=== PATIENT | male | born 1990 | race Caucasian/White ===

== ENCOUNTER 2017-09-02 04:25 | Inpatient (IN) ==
[~2017-09-02 04:25] MED LIST: NALOXONE HCL 0.4 MG/ML VIAL ONE
[2017-09-02] MEDS ORDERED: 0.9 % SODIUM CHLORIDE 1,000 ML IV ONE ×3 (04:31→07:31)
[2017-09-02] MEDS ORDERED: NALOXONE HCL 0.4 MG/ML VIAL IV ONE ×3 (04:31→07:31)
--- NOTE | 2017-09-02 04:51 | Emergency Department Note ---
Altered Mental Status HPI - General Chief Complaint: Altered Mental Status Stated Complaint: Altered mental status Time Seen by Provider: 09/02/17 04:31 - History of Present Illness HPI Narrative: 27-year-old male brought in by significant other altered mental status, but did walk in on his own. Not responding verbally, significant other states he does take drugs, has a needle asha in the left arm. . He states he does not believe he was taking any alcohol but she was not there she states she received a text that was jumbled and she went over to see him and was there for approximately 15 minutes with his altered mental status. Does not know what he uses does know that he is used in the past. He states she has lived with them in the past but does not know his name. other than [place].. Patient given Narcan and patient immediately awakened and talking but uncooperative as far as he has a history of what he took . His pulse ox is running 95-96 % and blood pressure was 140 systolically . Review of Systems Limitations: ROS unobtainable due to patients medical condition Past Medical History - Past Medical History PMFSH Narrative: Significant other states he has used drugs in the past but she does not know which type Source: unable to obtain - Social History smoking status: Current every day smoker Physical Exam General appearance: obtunded Head: atraumatic Eye: Present: normal appearance, PERRL, other (pupils constricted) ENT: normal exam, normal oropharynx, mucous membranes moist Neck: Present: normal inspection, full ROM, trachea midline Chest: Present: normal inspection, symmetric chest wall rise Respiratory: Present: normal lung sounds bilaterally. Absent: respiratory distress, wheezes Cardiovascular: Present: regular rate, normal rhythm Abdominal: Present: soft, normal bowel sounds. Absent: distention, tenderness, guarding, rebound, rigidity Extremities: Present: normal inspection, full ROM. Absent: tenderness Back: Present: normal inspection, full ROM. Absent: tenderness Course Vital Signs Temperature 98.2 F 09/02/17 04:26 Pulse Rate 102 H 09/02/17 04:26 Respiratory Rate 20 09/02/17 04:26 Blood Pressure 142/104 09/02/17 04:26 Pulse Oximetry (%) 100 09/02/17 04:26 Temperature 98.2 F 09/02/17 04:26 Pulse Rate 92 H 09/02/17 07:46 Respiratory Rate 20 09/02/17 07:46 Blood Pressure 137/96 09/02/17 07:46 Pulse Oximetry (%) 100 09/02/17 07:46 Altered Mental Status - MDM Narrative Medical decision making narrative: after the narcan he sat up and said "Boy, this is the strangest doctor's office I've ever seen". resting. given second and 3rd narcan. abg's show 62 co Bi pap started and gases back to normal ph 7.[address] Crookconsulted and pt admitted - Lab Data Result diagrams: 09/02/17 04:44 09/02/17 04:44 Lab Results 09/02/17 09/02/17 09/02/17 Range/Units 04:44 04:44 04:44 WBC 14.4 H (4.5-11.0) K/mcL RBC 5.39 (4.50-5.90) M/mcL Hgb 16.1 (13.5-16.5) g/dL Hct 48.5 (41.0-55.0) % POC Hct 50.0 (41.0-55.0) % MCV 90.0 (80.0-100.0) fL MCH 29.8 (26.0-34.0) pg MCHC 33.1 (31.0-36.0) g/dL RDW 12.8 (11.5-14.5) % Plt Count 322 (140-440) K/mcL MPV 8.0 (7.4-10.4) fL Gran % 67.4 (38.0-78.0) % Lymph % (Auto) 23.1 (15.5-49.0) % [place] % (Auto) 7.8 (1.0-12.0) % Eos % (Auto) 1.3 (0.0-7.0) % Baso % (Auto) 0.4 (0.0-2.0) % Gran # 9.7 H (1.8-8.0) K/mcL Lymph # (Auto) 3.3 (1.5-4.8) K/mcL [place] # (Auto) 1.1 H (0.1-0.9) K/mcL Eos # (Auto) 0.2 (0.0-0.7) K/mcL Baso # (Auto) 0.1 (0.0-0.3) K/mcL POC Sodium 143 (133-145) mmol/L Sodium 141 (133-145) mmol/L POC Potassium 4.4 (3.3-5.1) mmol/L Potassium 4.5 (3.3-5.1) mmol/L POC Chloride 102 (96-108) mmol/L Chloride 99 (96-108) mmol/L Carbon Dioxide 29 (22-30) mmol/L POC Total CO2 35 H (22-30) mmol/L Anion Gap 13.0 (8-16) POC BUN 13 (6-20) mg/dl BUN 12 (6-20) mg/dl Creatinine 1.3 H (0.7-1.2) mg/dl POC Creatinine 1.3 H (0.7-1.2) mg/dl GFR Calculation 76 Glucose 102 (70-105) mg/dL POC Glucose 101 (70-105) mg/dL Calcium 9.5 (8.6-10.4) mg/dl POC WB Ioniz Calcium 1.21 (1.16-1.32) mmol/L Total Bilirubin 0.3 (0.0-1.0) mg/dL AST 17 (0-37) U/l ALT 11 (0-40) U/l Alkaline Phosphatase 97 (39-117) U/L Total Protein 7.9 (5.9-8.4) gm/dL Albumin 4.6 (3.2-5.2) gm/dL Globulin 3.3 (2.2-3.7) gm/dL Albumin/Globulin Ratio 1.4 (1.0-2.3) Salicylates < 0.3 mg/dL Urine Opiates Screen (NONDETECTED) Urine Methadone Screen (NONDETECTED) Acetaminophen < 5.0 ug/mL Ur Barbiturates Screen (NONDETECTED) Ur Phencyclidine Scrn (NONDETECTED) Ur Amphetamines Screen (NONDETECTED) U Benzodiazepines Scrn (NONDETECTED) Urine Cocaine Screen (NONDETECTED) U Marijuana (THC) Screen (NONDETECTED) Ethyl Alcohol (<0.010) gm/dl 09/02/17 09/02/17 Range/Units 04:44 06:45 WBC (4.5-11.0) K/mcL RBC (4.50-5.90) M/mcL Hgb (13.5-16.5) g/dL Hct (41.0-55.0) % POC Hct (41.0-55.0) % MCV (80.0-100.0) fL MCH (26.0-34.0) pg MCHC (31.0-36.0) g/dL RDW (11.5-14.5) % Plt Count (140-440) K/mcL MPV (7.4-10.4) fL Gran % (38.0-78.0) % Lymph % (Auto) (15.5-49.0) % [place] % (Auto) (1.0-12.0) % Eos % (Auto) (0.0-7.0) % Baso % (Auto) (0.0-2.0) % Gran # (1.8-8.0) K/mcL Lymph # (Auto) (1.5-4.8) K/mcL [place] # (Auto) (0.1-0.9) K/mcL Eos # (Auto) (0.0-0.7) K/mcL Baso # (Auto) (0.0-0.3) K/mcL POC Sodium (133-145) mmol/L Sodium (133-145) mmol/L POC Potassium (3.3-5.1) mmol/L Potassium (3.3-5.1) mmol/L POC Chloride (96-108) mmol/L Chloride (96-108) mmol/L Carbon Dioxide (22-30) mmol/L POC Total CO2 (22-30) mmol/L Anion Gap (8-16) POC BUN (6-20) mg/dl BUN (6-20) mg/dl Creatinine (0.7-1.2) mg/dl POC Creatinine (0.7-1.2) mg/dl GFR Calculation Glucose (70-105) mg/dL POC Glucose (70-105) mg/dL Calcium (8.6-10.4) mg/dl POC WB Ioniz Calcium (1.16-1.32) mmol/L Total Bilirubin (0.0-1.0) mg/dL AST (0-37) U/l ALT (0-40) U/l Alkaline Phosphatase (39-117) U/L Total Protein (5.9-8.4) gm/dL Albumin (3.2-5.2) gm/dL Globulin (2.2-3.7) gm/dL Albumin/Globulin Ratio (1.0-2.3) Salicylates mg/dL Urine Opiates Screen Suspect positive A (NONDETECTED) Urine Methadone Screen None detected (NONDETECTED) Acetaminophen ug/mL Ur Barbiturates Screen None detected (NONDETECTED) Ur Phencyclidine Scrn None detected (NONDETECTED) Ur Amphetamines Screen Suspect positive A (NONDETECTED) U Benzodiazepines Scrn None detected (NONDETECTED) Urine Cocaine Screen None detected (NONDETECTED) U Marijuana (THC) Screen Suspect positive A (NONDETECTED) Ethyl Alcohol < 0.010 (<0.010) gm/dl Disposition Pt seen by DECK MATE/PA only: No Clinical Impression: Drug overdose Qualifiers: Encounter type: initial encounter Injury intent: undetermined intent Qualified Code(s): T50.904A - Poisoning by unspecified drugs, medicaments and biological substances, undetermined, initial encounter Disposition: Xfer As Inpt ([facility]) Condition: Undetermined
[2017-09-02 05:29] LABS: Basophils # (Auto) 0.1 K/mcL (0.0-0.3); Basophils % (Auto) 0.4 % (0.0-2.0); Eosinophils # (Auto) 0.2 K/mcL (0.0-0.7); Eosinophils % (Auto) 1.3 % (0.0-7.0); Granulocytes % (Auto) 67.4 % (38.0-78.0); Lymphocytes # (Auto) 3.3 K/mcL (1.5-4.8); Lymphocytes % (Auto) 23.1 % (15.5-49.0); Mean Corpuscular HGB Conc 33.1 g/dL (31.0-36.0); Mean Corpuscular Hemoglobin 29.8 pg (26.0-34.0); Monocytes # (Auto) 1.1 K/mcL (0.1-0.9); Monocytes % (Auto) 7.8 % (1.0-12.0); Platelet Count 322 K/mcL (140-440); RBC 5.39 M/mcL (4.50-5.90); Red Cell Distribution Width 12.8 % (11.5-14.5)
--- NOTE | 2017-09-02 05:49 | Cat Scan Report ---
CLINICAL INFORMATION: Altered mental status COMPARISON: None. TECHNIQUE: Axial noncontrast-enhanced images through the brain. FINDINGS: Suboptimal images due to patient motion. No acute intracranial hemorrhage. No subdural hematoma. No subarachnoid hemorrhage. No intra-axial hemorrhage. No focal attenuation abnormality or localized mass effect. No midline shift. Cerebral hemispheres are negative. Brainstem and cerebellum are negative. Liver cisterns are normal. No calvarial lesions. No fracture. No lytic lesion. No scalp hematoma. IMPRESSION: Negative noncontrast enhanced brain CT scan. No acute abnormality. Interpreted and Authenticated by: Chris Miranda 09/02/17
--- NOTE | 2017-09-02 05:50 | XRay Report ---
INDICATION: Altered mental status TECHNIQUE: AP chest x-ray,semiupright portable COMPARISON: None FINDINGS:Lungs are negative. No parenchymal infiltrate or mass. Heart size and vascularity are normal. Xenia and mediastinum are negative. No pulmonary edema or pulmonary congestion. Xenia and mediastinum are negative. IMPRESSION: Negative AP portable chest x-ray Interpreted and Authenticated by: Chris Miranda 09/02/17
[2017-09-02 05:51] LABS: ALT/SGPT 11 U/l (0-40); Albumin 4.6 gm/dL (3.2-5.2); Albumin/Globulin Ratio 1.4 (1.0-2.3); Alkaline Phosphatase 97 U/L (39-117); Blood Urea Nitrogen 12 mg/dl (6-20)
[2017-09-02 05:52] LABS: Acetaminophen < 5.0 ug/mL; Salicylate < 0.3 mg/dL
[2017-09-02] MEDS ORDERED: NALOXONE HCL 1 MG in 0.9 % SODIUM CHLORIDE 250 ML IV SCH ×2 (07:30→12:00)
[2017-09-02] MEDS ORDERED: LORazepam 2 MG/ML VIAL IV ONE (07:31)
[2017-09-02 07:37] LABS: Amphetamine Screen,Urine SUSPECT POSITIVE (NONDETECTED); Benzodiazepines Screen,Urine NONE DETECTED (NONDETECTED); Cocaine Screen,Urine NONE DETECTED (NONDETECTED); Opiate Screen,Urine SUSPECT POSITIVE (NONDETECTED)
[2017-09-02] MEDS ORDERED: LORazepam 2 MG/ML VIAL IV PRN ×2 (10:05→11:12)
[2017-09-02] MEDS ORDERED: NALOXONE HCL 0.4 MG/ML VIAL IV PRN ×2 (10:05→11:12)
[2017-09-02] MEDS ORDERED: 0.9 % SODIUM CHLORIDE 1,000 ML IV SCH ×2 (10:15→11:12)
--- NOTE | 2017-09-02 10:20 | Internal Med History&Physical ---
Medical - H&P: HPI Patient information: Note initiated : 09/02/17 at 10:17 am Service Date, if different from initiated Date: [] Patient: Virginia Diop 27 y/o M admitted on for Altered mental status. Chief Complaint: AMS . History of present illness: This is a 27-year-old male reportedly known as "[place]ia" who is brought in by an acquaintance to the ER with confusion. Information is obtained from review of the medical record as there is no one at the bedside and patient is unable to give information. Per ER report, the woman who brought him in states that he has sometimes stayed with them in the past but she did not know his name other than [place]. She reported that he does take drugs. She became worried about him after receiving attacks that was "jumbled". In the ED, his urine drug screen was positive for THC, opiates and amphetamines. He has received multiple doses of Narcan and responded each time, but he has continued to fall back asleep. He was started on BiPAP in the ER. ER evaluation shows a leukocytosis. He has not been febrile. He has not been hypoxic. Head CT and chest x-ray are negative ROS unobtainable: due to mental status Medical - H&P: PMH Medical history: Unobtainable secondary to mental status. Unable to obtain home meds or allergies d/t mental status. Surgical history: Unobtainable secondary to mental status. Pertinent family history: Unobtainable secondary to mental status Social history: Per chart review, he is a daily smoker and uses injection drugs. Medical - H&P: Exam - Constitutional Vitals: Temp Pulse Resp BP Pulse Ox 97.6 F 78 21 131/96 97 09/02/17 09:45 09/02/17 09:45 09/02/17 09:31 09/02/17 09:31 09/02/17 09:45 General: This is a well-developed, well-nourished young man who appears his stated age. He is unresponsive lying in the ER gurney on BiPAP HEENT: Normocephalic atraumatic. He actively resists opening his eyes for pupillary exam. Oropharynx is moist. Neck: Supple without lymphadenopathy or tracheal deviation Cardiovascular: Regular rate and rhythm. No murmurs Pulmonary: No respiratory depression. Lower breathing. Lungs are clear auscultation bilaterally. Abdomen: Soft, nondistended, nontender. Positive bowel tones. : Deferred Skin: Multiple tattoos over his body, warm and dry. No rash. Extremities: No clubbing, cyanosis or edema. No deformities or effusions. Neuro: He is obtunded. He grimaces and attempts to open his eyes to sternal rub. He withdraws to light touch in both of his feet and withdraws his upper extremities to nailbed pressure. He appears to have cogwheeling rigidity most evident in his left upper extremity (? Patient actively resisting exam versus actual rigidity). Medical - H&P: Reslt - Labs CBC & Chem 7: 09/02/17 04:44 09/02/17 04:44 Labs: Short CBC 09/02/17 Range/Units 04:44 WBC 14.4 H (4.5-11.0) K/mcL Hgb 16.1 (13.5-16.5) g/dL Hct 48.5 (41.0-55.0) % Plt Count 322 (140-440) K/mcL BMP 09/02/17 04:44 Sodium 141 Potassium 4.5 Chloride 99 Carbon Dioxide 29 BUN 12 Creatinine 1.3 H Glucose 102 Calcium 9.5 Liver Function 09/02/17 Range/Units 04:44 Total Bilirubin 0.3 (0.0-1.0) mg/dL AST 17 (0-37) U/l ALT 11 (0-40) U/l Alkaline Phosphatase 97 (39-117) U/L Albumin 4.6 (3.2-5.2) gm/dL - ABG Interpretation Additional comments: ABG shows a pH of 7.36, PCO2 of 49, PO2 of 140 on BiPAP 14/8; previous ABG showed pH of 7.29, PCO2 63, PO2 63 on room air. - EKG Data -: EKG Interpreted by Myself, EKG Reviewed by Myself EKG shows normal: sinus rhythm Rate: normal - Impressions EKG shows normal sinus rhythm, normal axis. T waves are peaked in the anterolateral leads. QRS and QTC intervals are normal. chest x-ray negative Head CT negative Medical - H&P: A/P - Narrative A/P Narrative: #Acute hypercapnic respiratory failure, currently BiPAP dependent -likely 2/2 opiate overdose (see encephalopathy assessment) -wean bipap as able. Titrate O2. Admit to ICU. Currently protecting airway and does not need intubation at this time. #Acute encephalopathy -suspect almost entirely, if not entirely, due to polysubstance overdose. Does not seem to have as pronounce respiratory depression as I would have expected but this may be a result of his multiple dose of Narcan. He may also be coming off meth, clouding the picture. Doubt THC is playing significant role. Tylenol/ASA/EtOH negative. No significant metabolic acidosis to give reason for other ingestions. No significant QT prolongation. -doubt DERRICK [employer]LLOWER infection. Although he has a leukocytosis, he has no nuchal rigidity and no fever. If he develops either, will have a low threshold to pursue lumbar puncture +/- empiric acyclovir. Doubt bacterial meningitis -check UA; low suspicion for UTI #Questionable rigidity on exam with cogwheeling -Possibly related to meth use. ?True Parkinsonism vs lack of patient cooperation. Monitor. Check CK. #SIRS -check lactic acid. Maintenance IVF for now. If CK elevated or becomes hypotensive, will change to fluid boluses. #Injection drug use with polysubstance abuse -check HIV. PRN Ativan for HTN in setting of meth #DVT--enoxaparin #Code status--presumed full. Will continue to address with patient as he clears.
[2017-09-02 12:21] LABS: ALT/SGPT 8 U/l (0-40); Albumin 3.6 gm/dL (3.2-5.2); Albumin/Globulin Ratio 1.4 (1.0-2.3); Alkaline Phosphatase 72 U/L (39-117); Blood Urea Nitrogen 10 mg/dl (6-20)
[2017-09-02 12:22] LABS: Creatine Kinase 68 IU/L (24-195)
[2017-09-02] MEDS ORDERED: NALOXONE HCL 1 MG in 0.9 % SODIUM CHLORIDE 250 ML IV PRN (12:30)
[2017-09-02] MEDS ORDERED: 0.9 % SODIUM CHLORIDE 10 ML SYRINGE IV SCH ×2 (14:00)
[2017-09-02 14:11] LABS: Appearance,Urine HAZY; Bilirubin,Urine NEG (NEG); Color,Urine YELLOW; Glucose,Urine (UA) NEGATIVE (NEG); Leukocyte Esterase,Urine NEG /uL (NEG); Nitrate,Urine NEG (NEG); Protein,Urine NEG (NEG); Specific Gravity,Urine 1.019 (1.000-1.035); Urine Blood NEG mg/dL (<0.03); Urobilinogen,Urine NEG (NEG)
--- NOTE | 2017-09-02 15:31 | Discharge Summary ---
Medical - DS: Prov Patient information: Note initiated : 09/02/17 at 3:29 pm Service Date, if different from initiated Date: [] Patient: Barry Marshall 27 y/o M admitted on 09/02/17 for Altered mental status. Chief Complaint: [] Date of admission: 09/02/17 10:55 Discharge date: 09/02/17 Attending physician on admission: Jania Crook Consults: 09/02/17 08:46 Consult to Physician [CONS] Stat Comment: Consulting Provider: Jania Crook Reason For Exam: Physician to Consult Attending physician on discharge: Jania Crook Medical - DS: Hosp Hospital course: Who was brought into the ER by an unknown acquaintance with confusion. Please see the HPI for further details. He admits to using heroin, methamphetamine and marijuana, but states the amount of heroin he used this admission (half a point) should not have made him so somnolent and he adamantly denies using anything else. When counseled on abstaining from illicit substances, he states that he will have no problems doing so as "addiction is a choice". After multiple doses of Narcan, he was weaned from BiPAP to room air and is requesting discharge. He is discharged to the care of friend and is counseled to return if his somnolence recurs. HIV was tested this admission and is negative. Discharge diagnosis: Acute hypercapneic respiratory failure Secondary discharge diagnosis: Polysubstance overdose SIRS Questionable rigidity on exam--now resolved on repeat exam IVDU - Time Spent with Patient Total time spent providing and/or coordinating discharge services: Greater than 30 minutes Medical - DS: Exam - Constitutional Vitals: Vital Signs Temp Pulse Pulse Resp BP BP Pulse Ox 09/02/17 15:06 64 16 100 09/02/17 15:01 62 17 110/87 97 09/02/17 14:07 78 14 99 09/02/17 14:01 98.4 F 91 H 20 124/90 97 09/02/17 13:10 80 20 100 09/02/17 13:03 18 09/02/17 13:01 98.7 F 75 21 134/73 96 09/02/17 12:20 74 16 98 09/02/17 12:01 70 14 123/78 98 09/02/17 12:00 78 23 H 97 11/15/17 11:56 74 11 L 118/79 99 09/02/17 11:05 98.2 F 74 16 130/81 99 09/02/17 11:00 98.5 F 70 16 123/78 97 09/02/17 10:55 99.1 F H 82 16 90/73 98 09/02/17 10:46 94.9 F L 76 131/77 98 09/02/17 10:31 98.2 F 75 129/78 98 09/02/17 10:25 98.2 F 74 16 99 09/02/17 10:16 98.1 F 78 13 130/81 98 09/02/17 10:01 97.9 F 80 131/82 98 09/02/17 09:46 97.7 F 81 130/81 98 09/02/17 09:45 97.6 F 78 97 09/02/17 09:32 97.9 F 09/02/17 09:31 86 21 131/96 98 09/02/17 09:30 77 20 98 09/02/17 09:16 87 16 133/80 98 09/02/17 09:07 100 H 15 99 09/02/17 09:01 87 19 131/83 98 09/02/17 08:46 87 13 139/83 98 09/02/17 08:31 93 H 12 132/85 98 09/02/17 08:16 88 17 143/90 99 09/02/17 08:01 93 H 16 150/98 100 09/02/17 07:59 97 H 21 137/98 100 09/02/17 07:46 92 H 20 137/96 100 09/02/17 07:33 105 H 22 130/102 100 09/02/17 07:31 104 H 31 H 145/104 100 09/02/17 07:26 98 H 24 H 140/87 100 09/02/17 07:25 90 17 99 09/02/17 07:16 96 H 22 91/65 92 09/02/17 07:01 100 H 18 119/76 91 09/02/17 06:56 99 H 18 126/82 92 09/02/17 06:15 101 H 16 140/95 90 09/02/17 06:14 96 H 28 H 90 09/02/17 06:01 95 H 16 119/90 90 09/02/17 05:46 93 H 17 130/89 92 09/02/17 05:38 94 H 16 151/81 95 09/02/17 05:16 100 H 17 147/96 96 09/02/17 05:01 88 18 127/94 96 09/02/17 04:49 87 17 135/94 98 09/02/17 04:26 98.2 F 102 H 20 142/104 100 Intake and Output 09/02/17 09/02/17 09/02/17 05:59 13:59 21:59 Intake Total 1000 / 1000 1999 300 / 300 Output Total 365 / 365 95 / Balance 1000 / 1000 1635 / 1635 205 / 205 Intake: IV 1000 / 1000 1999 Sodium Chloride 0.9% 1,000 ml @ 1000 / 1000 1999 Wide Open IV BOLUS ONE Rx#: [id number] Oral 300 / 300 Output: Urine Catheter Amount 365 / 365 Other: Weight 133 lb 133 lb Patient Weight 09/03/17 05:59 Weight 133 lb Gen: NAD. On RA CV: RRR Resp: CTAB NRO: A/Ox 3. no focal deficits. no rigidity Medical - DS: Data Labs on day of discharge: Labs from last 24 hours 09/02/17 09/02/17 09/02/17 11:35 11:35 11:35 WBC RBC Hgb Hct POC Hct MCV MCH MCHC RDW Plt Count MPV Gran % Lymph % (Auto) [place] % (Auto) Eos % (Auto) Baso % (Auto) Gran # Lymph # (Auto) [place] # (Auto) Eos # (Auto) Baso # (Auto) VBG Lactic Acid POC Sodium Sodium 142 POC Potassium Potassium 4.2 POC Chloride Chloride 107 Carbon Dioxide 26 POC Total CO2 Anion Gap 9.0 POC BUN BUN 10 Creatinine 1.0 POC Creatinine GFR Calculation 104 Glucose 94 POC Glucose Calcium 8.3 L POC WB Ioniz Calcium Total Bilirubin 0.3 AST 10 ALT 8 Alkaline Phosphatase 72 Total Creatine Kinase 68 Total Protein 6.1 Albumin 3.6 Globulin 2.5 Albumin/Globulin Ratio 1.4 Urine Color Urine Appearance Urine pH Ur Specific [place] Urine Protein Urine Glucose (UA) Urine Ketones Urine Occult Blood Urine Nitrate Urine Bilirubin Urine Urobilinogen Ur Leukocyte Esterase Ur Culture Indicated? Salicylates Opiates Screen Urine Opiates Screen Ur Opiates Confirm Methadone Urine Methadone Screen Ur Methadone Confirm Propoxyphene & Metabol Methaqualone Acetaminophen Barbiturate Screen Ur Barbiturates Screen Ur Barbiturate Confirm Phencyclidine Screen Ur Phencyclidine Scrn Urine PCP Confirm Amphetamines Screen Ur Amphetamines Screen U Amphetamines Confirm Benzodiazepines Screen U Benzodiazepines Scrn U Benzodiazepine Confm Cocaine Screen Urine Cocaine Screen Urine Cocaine Confirm U Cannabinoids Confirm Marijuana (THC) Screen U Marijuana (THC) Screen Drug Screen Specimen Ethyl Alcohol HIV 1&2 Ag/Ab, 4th Gen Non-reactive 09/02/17 09/02/17 09/02/17 11:35 08:55 06:45 WBC RBC Hgb Hct POC Hct MCV MCH MCHC RDW Plt Count MPV Gran % Lymph % (Auto) [place] % (Auto) Eos % (Auto) Baso % (Auto) Gran # Lymph # (Auto) [place] # (Auto) Eos # (Auto) Baso # (Auto) VBG Lactic Acid 0.5 0.4 L POC Sodium Sodium POC Potassium Potassium POC Chloride Chloride Carbon Dioxide POC Total CO2 Anion Gap POC BUN BUN Creatinine POC Creatinine GFR Calculation Glucose POC Glucose Calcium POC WB Ioniz Calcium Total Bilirubin AST ALT Alkaline Phosphatase Total Creatine Kinase Total Protein Albumin Globulin Albumin/Globulin Ratio Urine Color Yellow Urine Appearance Hazy Urine pH 7.0 Ur Specific [place] 1.019 Urine Protein Neg Urine Glucose (UA) Negative Urine Ketones Neg Urine Occult Blood Neg Urine Nitrate Neg Urine Bilirubin Neg Urine Urobilinogen Neg Ur Leukocyte Esterase Neg Ur Culture Indicated? No Salicylates Opiates Screen Urine Opiates Screen Ur Opiates Confirm Methadone Urine Methadone Screen Ur Methadone Confirm Propoxyphene & Metabol Methaqualone Acetaminophen Barbiturate Screen Ur Barbiturates Screen Ur Barbiturate Confirm Phencyclidine Screen Ur Phencyclidine Scrn Urine PCP Confirm Amphetamines Screen Ur Amphetamines Screen U Amphetamines Confirm Benzodiazepines Screen U Benzodiazepines Scrn U Benzodiazepine Confm Cocaine Screen Urine Cocaine Screen Urine Cocaine Confirm U Cannabinoids Confirm Marijuana (THC) Screen U Marijuana (THC) Screen Drug Screen Specimen Ethyl Alcohol HIV 1&2 Ag/Ab, 4th Gen 09/02/17 09/02/17 09/02/17 06:45 04:44 04:44 WBC RBC Hgb Hct POC Hct MCV MCH MCHC RDW Plt Count MPV Gran % Lymph % (Auto) [place] % (Auto) Eos % (Auto) Baso % (Auto) Gran # Lymph # (Auto) [place] # (Auto) Eos # (Auto) Baso # (Auto) VBG Lactic Acid POC Sodium Sodium POC Potassium Potassium POC Chloride Chloride Carbon Dioxide POC Total CO2 Anion Gap POC BUN BUN Creatinine POC Creatinine GFR Calculation Glucose POC Glucose Calcium POC WB Ioniz Calcium Total Bilirubin AST ALT Alkaline Phosphatase Total Creatine Kinase Total Protein Albumin Globulin Albumin/Globulin Ratio Urine Color Urine Appearance Urine pH Ur Specific [place] Urine Protein Urine Glucose (UA) Urine Ketones Urine Occult Blood Urine Nitrate Urine Bilirubin Urine Urobilinogen Ur Leukocyte Esterase Ur Culture Indicated? Salicylates < 0.3 Opiates Screen TNP Urine Opiates Screen Suspect positive A Ur Opiates Confirm Not Reportable Methadone TNP Urine Methadone Screen None detected Ur Methadone Confirm Not Reportable Propoxyphene & Metabol TNP Methaqualone TNP Acetaminophen < 5.0 Barbiturate Screen TNP Ur Barbiturates Screen None detected Ur Barbiturate Confirm Not Reportable Phencyclidine Screen TNP Ur Phencyclidine Scrn None detected Urine PCP Confirm Not Reportable Amphetamines Screen TNP Ur Amphetamines Screen Suspect positive A U Amphetamines Confirm Not Reportable Benzodiazepines Screen TNP U Benzodiazepines Scrn None detected U Benzodiazepine Confm Not Reportable Cocaine Screen TNP Urine Cocaine Screen None detected Urine Cocaine Confirm Not Reportable U Cannabinoids Confirm Not Reportable Marijuana (THC) Screen TNP U Marijuana (THC) Screen Suspect positive A Drug Screen Specimen TNP Ethyl Alcohol < 0.010 HIV 1&2 Ag/Ab, 4th Gen 09/02/17 09/02/17 04:44 04:44 WBC 14.4 H RBC 5.39 Hgb 16.1 Hct 48.5 POC Hct 50.0 MCV 90.0 MCH 29.8 MCHC 33.1 RDW 12.8 Plt Count 322 MPV 8.0 Gran % 67.4 Lymph % (Auto) 23.1 [place] % (Auto) 7.8 Eos % (Auto) 1.3 Baso % (Auto) 0.4 Gran # 9.7 H Lymph # (Auto) 3.3 [place] # (Auto) 1.1 H Eos # (Auto) 0.2 Baso # (Auto) 0.1 VBG Lactic Acid POC Sodium 143 Sodium 141 POC Potassium 4.4 Potassium 4.5 POC Chloride 102 Chloride 99 Carbon Dioxide 29 POC Total CO2 35 H Anion Gap 13.0 POC BUN 13 BUN 12 Creatinine 1.3 H POC Creatinine 1.3 H GFR Calculation 76 Glucose 102 POC Glucose 101 Calcium 9.5 POC WB Ioniz Calcium 1.21 Total Bilirubin 0.3 AST 17 ALT 11 Alkaline Phosphatase 97 Total Creatine Kinase Total Protein 7.9 Albumin 4.6 Globulin 3.3 Albumin/Globulin Ratio 1.4 Urine Color Urine Appearance Urine pH Ur Specific [place] Urine Protein Urine Glucose (UA) Urine Ketones Urine Occult Blood Urine Nitrate Urine Bilirubin Urine Urobilinogen Ur Leukocyte Esterase Ur Culture Indicated? Salicylates Opiates Screen Urine Opiates Screen Ur Opiates Confirm Methadone Urine Methadone Screen Ur Methadone Confirm Propoxyphene & Metabol Methaqualone Acetaminophen Barbiturate Screen Ur Barbiturates Screen Ur Barbiturate Confirm Phencyclidine Screen Ur Phencyclidine Scrn Urine PCP Confirm Amphetamines Screen Ur Amphetamines Screen U Amphetamines Confirm Benzodiazepines Screen U Benzodiazepines Scrn U Benzodiazepine Confm Cocaine Screen Urine Cocaine Screen Urine Cocaine Confirm U Cannabinoids Confirm Marijuana (THC) Screen U Marijuana (THC) Screen Drug Screen Specimen Ethyl Alcohol HIV 1&2 Ag/Ab, 4th Gen Medical - DS: A/P - Patient/Caregiver Discharge Instructions Activity: increase activity as tolerated Diet: Regular Diet - Follow up Plan Disposition: Home, Self-Care Prognosis: Fair Rehab Potential: Good I certify that the patient requires SNF services: No Overall status at discharge: patient is progressing back to baseline
[2017-09-03] MEDS ORDERED: ENOXAPARIN 40 MG/0.4 ML SYRINGE SQ SCH ×2 (09:00)
== END 2017-09-02 16:13 | disposition home or self-care (01) | DRG 189 ==
LOC: ED 04:25 → ICU 10:55
PROVIDERS: ADMIT Internal Medicine; ATTEND Internal Medicine